=== PATIENT | male | born 1995 | race African-American/Black ===

== ENCOUNTER 2021-07-31 08:32 | Emergency (ER) | payer OTHER ==
[~2021-07-31] VITALS: Ht 180.3 cm; Wt 87.6 kg
[2021-07-31 08:33] VITALS: BP 140/63
[2021-07-31] MEDS ORDERED: MUCI600T31 PO (08:41)
[2021-07-31] MEDS ORDERED: BENZONATATE 100MG CAPSULE PO ONE (10:30)
[2021-07-31 11:16] VITALS: O2SAT 97
[2021-07-31] MEDS ORDERED: TESS100C PO (13:06)
== END 2021-07-31 13:49 | disposition home or self-care (01) ==
LOC: M ED 08:32
DX: J06.9 Acute upper respiratory infection, unspecified (principal); B34.1 Enterovirus infection, unspecified; R51.9 Headache, unspecified; Z20.822 Contact with and (suspected) exposure to COVID-19; R43.9 Unspecified disturbances of smell and taste; Z88.1 Allergy status to other antibiotic agents

== ENCOUNTER 2021-08-16 14:25 | Emergency (ER) | payer OTHER ==
[~2021-08-16] VITALS: Ht 180.3 cm; Wt 87.1 kg
[~2021-08-16 14:25] MED LIST: MUCI600T31 PO; TESS100C PO
[2021-08-16 18:26] LABS: BASO % 0.5 % (0.0-1.0); EOS # 0.2 10^3/uL (0.0-0.5); EOS % 2.3 % (0.0-3.0); HEMATOCRIT 47.9 % (42.0-52.0); HEMOGLOBIN 14.5 g/dl (13.5-17.5); LYMPH % 41.4 % (24.0-44.0); MEAN CORPUSCULAR HEMOGLOBIN 22.8 pg (27.0-33.0); MEAN CORPUSCULAR HGB CONC 30.3 g/dl (32.0-36.5); MEAN CORPUSCULAR VOLUME 75.4 fl (80.0-96.0); MONO # 0.6 10^3/uL (0.0-0.8); MONO % 7.5 % (2.0-8.0); NEUTROPHILS # 3.5 10^3/uL (1.5-8.5); NEUTROPHILS % 47.9 % (36.0-66.0); PLATELET COUNT, AUTOMATED 213 10^3/uL (150-450); RED BLOOD COUNT 6.35 10^6/uL (4.30-6.10); WHITE BLOOD COUNT 7.3 10^3/uL (4.0-10.0)
[2021-08-16 18:43] LABS: INR 1.01; PROTHROMBIN TIME 13.7 SECONDS (12.7-14.5)
[2021-08-16 18:44] LABS: PARTIAL THROMBOPLASTIN TIME 27.9 SECONDS (25.9-37.0)
[2021-08-16 18:53] LABS: ALT/SGPT 27 U/L (12-78); BILIRUBIN,TOTAL 0.4 MG/DL (0.2-1.0); BLOOD UREA NITROGEN 13 MG/DL (7-18); CALCIUM LEVEL 8.9 MG/DL (8.5-10.1); CARBON DIOXIDE LEVEL 29 MEQ/L (21-32); CHLORIDE LEVEL 109 MEQ/L (98-107); CREATININE FOR GFR 1.22 MG/DL (0.70-1.30); GLOMERULAR FILTRATION RATE > 60.0 (>60); GLUCOSE, FASTING 88 MG/DL (70-100); POTASSIUM SERUM 4.8 MEQ/L (3.5-5.1); SODIUM LEVEL 141 MEQ/L (136-145); TOTAL PROTEIN 7.3 GM/DL (6.4-8.2)
--- NOTE | 2021-08-16 19:07 | REPVR ---
PROCEDURE INFORMATION: Exam: CT Head Without Contrast Exam date and time: 08/16/2021 6:02 PM Age: 25 years old Clinical indication: Syncope and collapse; Additional info: Syncope/nosebleed TECHNIQUE: Imaging protocol: Computed tomography of the head without contrast. Radiation optimization: All CT scans at this facility use at least one of these dose optimization techniques: automated exposure control; mA and/or kV adjustment per patient size (includes targeted exams where dose is matched to clinical indication); or iterative reconstruction. COMPARISON: No relevant prior studies available. FINDINGS: Brain: Normal. No hemorrhage. Unremarkable white matter. No mass effect. Cerebral ventricles: No ventriculomegaly. Paranasal sinuses: Visualized sinuses are unremarkable. No fluid levels. Mastoid air cells: Visualized mastoid air cells are well aerated. Bones/joints: Unremarkable. No acute fracture. Soft tissues: Unremarkable. IMPRESSION: No acute intracranial abnormality. Electronically signed by: Jose D Lobo On 08/16/2021 19:07:25 PM
[2021-08-16 20:02] VITALS: BP 117/58
== END 2021-08-16 20:02 | disposition home or self-care (01) ==
LOC: M ED 14:25
DX: R55 Syncope and collapse (principal); R04.0 Epistaxis; R42 Dizziness and giddiness; Z88.1 Allergy status to other antibiotic agents

== ENCOUNTER → 2023-08-26 | Outpatient (CLI) | payer OTHER | LOC: M PLAIMG 09:44 | DX: M54.50 Low back pain, unspecified (principal) ==